=== PATIENT | male | born 1975 | race Caucasian/White ===

== ENCOUNTER 2019-09-16 10:10 | Observation (INO) ==
[2019-09-16] MEDS: Acetaminophen 325 MG TABLET PO PRN (14:46)
[2019-09-17] MEDS: Acetaminophen 325 MG TABLET PO PRN (01:43)
[2019-09-17] MEDS ORDERED: Regadenoson 0.4 MG/5 ML SYRINGE IVP ONE (07:59)
[2019-09-17] MEDS ORDERED: Ondansetron 4 MG/2 ML VIAL IVP PRN (08:08)
[2019-09-17] MEDS ORDERED: MOM Conc 10 ML UD.LIQ PO PRN (08:08)
[2019-09-17] MEDS ORDERED: Mag Hydrox/Al Hydrox/Simeth 30 ML UDC PO PRN (08:08)
[2019-09-17] MEDS ORDERED: *HR* Promethazine 25 MG/ML VIAL IVP PRN (08:08)
[2019-09-17] MEDS ORDERED: Naloxone 0.4 MG/ML INJ IVP PRN (08:08)
[2019-09-17] MEDS ORDERED: Nitroglycerin 0.4 MG TAB.SUBL SL PRN (08:10)
[2019-09-18 06:34] LABS: Hematocrit 49.1 % (37.5-50.1); Hemoglobin 16.5 g/dL (12.9-16.9); Mean Corpuscular HGB Conc 33.6 g/dL (31.6-35.5); Mean Corpuscular Hemoglobin 32.1 pg (28.0-33.3); Mean Corpuscular Volume 95.5 fL (83.0-100.0); Mean Platelet Volume 11.1 fL (9.4-12.4); Platelet Count 264 K/mcL (140-400); Red Blood Count 5.14 M/mcL (4.19-5.50); White Blood Count 7.5 K/mcL (4.3-11.1)
[2019-09-18 06:55] LABS: Magnesium 2.3 mg/dL (1.6-2.6); Phosphorous 3.2 mg/dL (2.7-4.5)
[2019-09-18 06:58] LABS: BUN/Creatinine Ratio 17 (6-26); Blood Urea Nitrogen 17 mg/dL (6-20); Calcium 9.1 mg/dL (8.6-10.3); Carbon Dioxide 21 mEq/L (23-29); Chloride 107 mEq/L (98-107); Glucose 96 mg/dL (70-105); Osmolality,Calculated 291 (280-300); Potassium 4.1 mEq/L (3.5-5.1); Sodium 140 mEq/L (136-145); eGFR For African Americans > 60 (> 60); eGFR For Non-African Americans > 60 (> 60)
[2019-09-18] MEDS ORDERED: 0.9 % Sodium Chloride 2,000 ML ONE (14:38)
[2019-09-18] MEDS ORDERED: Heparin 1,000 UNITS/500 mL 500 ML ONE (14:39)
[2019-09-18] MEDS ORDERED: ISOVUE-370 200 ML INFUS..BTL ONE (14:39)
[2019-09-18] MEDS ORDERED: *HR* Heparin 10,000 UNIT/10 ML VIAL ONE (14:39)
[2019-09-18] MEDS ORDERED: Nitroglycerin 1,000 MCG/10 ML VIAL IV ONE (14:39)
[2019-09-18] MEDS ORDERED: *HR* Midazolam HCl 2 MG/2 ML VIAL ONE (14:59)
[2019-09-18] MEDS ORDERED: *HR* FentaNYL (PF) 100 MCG/2 ML VIAL ONE (15:00)
[2019-09-18 19:35] VITALS: BP 117/80
== END 2019-09-18 19:39 | disposition home or self-care (01) ==
LOC: CDU → 3BNU 17:44
PROVIDERS: ADMIT Internal Medicine; ATTEND Internal Medicine